=== PATIENT | female | born 1990 | race Caucasian/White ===

== ENCOUNTER 2021-09-30 21:50 | Emergency (ER) | payer SELFPAY ==
[2021-09-30 22:05] VITALS: BP 192/106; PULSE 107; RESP 20; TEMP 37.5; O2SAT 95; BMI 50.2
--- NOTE | 2021-09-30 23:39 | XRR_ITS ---
PROCEDURE INFORMATION: Exam: XR Chest Exam date and time: 09/30/2021 11:45 PM Age: 30 years old Clinical indication: Cough and shortness of breath; Patient HX: Cough with SOB. ; Additional info: Cough and congestion TECHNIQUE: Imaging protocol: Radiologic exam of the chest. Views: 1 view. COMPARISON: CR Chest 2 views* [id number] 07/15/2015 12:26 AM FINDINGS: Lungs: Subtle ill-defined opacity in both lung bases, similar to the findings on 07/15/2015. Pleural spaces: There is no pleural effusion or pneumothorax. Heart/Mediastinum: Cardiomediastinal contours are unremarkable. Bones/joints: Bones are unremarkable. XR/XR chest 1V portable [id number] IMPRESSION: 1. No acute findings. 2. Mild chronic or recurrent nonspecific opacity in the lung bases. Probable atelectasis and scarring.
--- NOTE | 2021-09-30 23:39 | W.ED.GENADLT ---
HPI - General Adult General: Chief complaint: General Medical Stated complaint: cough/SOB/runny nose/congestion Time Seen by Provider: 09/30/21 23:39 History of Present Illness: Patient comes in today for continued respiratory symptoms. Patient was seen at [facility] last week and was diagnosed with upper respiratory infection. Patient was given a azithromycin treatment course and has completed it with minimal to no relief. Patient appears nontoxic. Patient is able to speak in complete sentences. Patient does have occasional coughing spells. Patient was tested for COVID-19 and influenza last week with both negative. Associated symptoms: Reports dyspnea; Deny chest pain Review of Systems Const: Denies: fever(s) Card: Denies: chest pain Resp: Reports: dyspnea and non-productive cough PFSH ED PFSH: Social History (Updated 10/27/20 @ 10:16 by Keila Diaz) Smoking and tobacco status: current every day smoker Second hand smoke exposure: No Alcohol intake: former Physical Exam Const: COMMON NORMALS: alert HENMT: NOSE: Normal nares present THROAT: posterior oropharynx normal Neck/C-Spine: COMMON NORMALS: full ROM Resp: COMMON NORMALS: normal respiratory effort AUSCULTATION: diminished lung sounds Cardio: COMMON NORMALS: regular rate RATE: regular rate : COMMON NORMALS: Yes no CVA tenderness BLADDER/KIDNEY EXAM: Yes no CVA tenderness Back/Pelvis: COMMON NORMALS: no CVA tenderness Extremity: COMMON NORMALS: normal to inspection Neuro: SENSORIUM/ORIENTATION: Yes alert Skin: COMMON NORMALS: no rashes or lesions noted GENERAL SKIN EXAM: no rashes or lesions noted Course Vital Signs: Vital signs: Vital Signs Temperature 99.5 F 09/30/21 22:05 Pulse Rate 102 H 10/01/21 00:23 Respiratory Rate 22 H 10/01/21 00:23 Blood Pressure 170/125 10/01/21 00:23 Pulse Oximetry 97 10/01/21 00:23 MDM - General Adult Medical Decision Making 30-year-old female patient comes in today for continued difficulties from a upper respiratory infection. On exam patient had decreased breath sounds. Skin was warm and dry. Vital signs noted to elevation of blood pressure of 192 systolic, pulse ox of 95% on room air, and a temperature of 99.5. Patient does report that she usually runs a high blood pressure. Patient has not been taking her medication due to loss of insurance. Differential diagnosis includes pneumonia, bronchitis, asthma. Chest x-ray noted no pneumonia. Patient was treated for bronchitis versus asthma. Patient was given a dose of dexamethasone 10 mg, started on Augmentin. Patient was given a albuterol ipratropium breathing treatment. Patient will be sent home with an albuterol inhaler, prescription for Augmentin, a prescription for lisinopril for refills of her blood pressure medication, and a short burst of prednisone. Patient was encouraged to follow-up with primary care when she can for recheck of blood pressure and reevaluation of her lung sounds. Patient stated understanding. Discharge Plan Discharge Patient Disposition: Home Clinical Impression: Bronchitis Condition: Stable Prescriptions: New amoxicillin-pot clavulanate 875-125 mg tablet 1 tab PO BID Qty: 14 0RF prednisone 20 mg tablet 20 mg PO BID 5 Days Qty: 10 0RF Continued lisinopril 20 mg tablet 20 mg PO DAILY Qty: 30 11RF No Action venlafaxine [Effexor XR] 150 mg capsule,extended release 24hr 150 mg PO DAILY 0RF sofosbuvir-velpatasvir [Epclusa] 400-100 mg tablet 1 tab PO DAILY 0RF azithromycin 250 mg tablet See Rx Instructions PO .COMPLEX Qty: 6 0RF Rx Instructions: take 500 mg today (day 1), then 250 mg for 4 days (days 2-5) PO Discharge Orders: Discharge ED (Routine); Ordered 09/30/21 Ordered By: Elbert Abel Discharge Diet: Usual diet Discharge Activity: Increase activity as tolerated Patient Instructions: Acute Bronchitis (ED) Activity Restrictions/Additional Instructions: Drink plenty of water. Use inhaler 2 puffs every 4 hours as needed for cough and shortness of breath. Take Augmentin, amoxicillin with potassium clav., 1 tablet every 12 hours for 7 days. Use prednisone 20 mg 1 tablet twice a day for 5 days. Follow-up with primary care for further instruction and to reevaluate your blood pressure. Stand Alone Forms: Work/School Release Coding Level of Care Code ED [employer] Dist[employer] for [employer]
[2021-10-01] MEDS: amoxicillin-clav 875-125 mg Tablet 1 TAB PO (00:03)
[2021-10-01] MEDS: dexamethasone 10 mg/mL INJ IM (00:03)
[2021-10-01 00:09] VITALS: PULSE 100; RESP 95; O2SAT 20
[2021-10-01] MEDS: ipratropium-albuterol 3 mL Neb INHALATION (00:09)
[2021-10-01 00:13] VITALS: PULSE 100
[2021-10-01 00:23] VITALS: BP 170/125; PULSE 102; RESP 22; O2SAT 97
== END 2021-10-01 00:23 | disposition home or self-care (01) ==
PROVIDERS: Emergency Provider Nurse Practitioner Family
DX: J40 Bronchitis, not specified as acute or chronic (principal); F17.200 Nicotine dependence, unspecified, uncomplicated
CPT/HCPCS: 71045; 94640; 96372; 99284; J1100; J3535

== ENCOUNTER 2022-05-24 13:11 | Emergency (ER) | payer BC, MEDICAID, SELFPAY ==
[2022-05-24 13:16] VITALS: BP 173/136; PULSE 114; RESP 20; TEMP 36.7; O2SAT 98; BMI 44.3
[2022-05-24 14:26] LABS: Basophils # 0.1 10^3/uL (0.0-0.1); Basophils % 0.5 %; Eosinophils # 0.1 10^3/uL (0.0-0.8); Hemoglobin 14.9 g/dL (11.5-15.3); Lymphocytes # 1.5 10^3/uL (0.8-4.8); Lymphocytes % 12.7 %; Mean Corpuscular HGB Conc 33.9 g/dL (30.0-36.0); Mean Corpuscular Hemoglobin 29.6 pg (28.0-34.0); Mean Corpuscular Volume 87.3 fl (81-99); Mean Platelet Volume 9.7 fL (7.4-10.4); Monocytes # 0.7 10^3/uL (0.2-0.9); Monocytes % 6.1 %; Neutrophils # 8.99 10^3/uL (1.8-7.7); Neutrophils % 78.9 %; Nucleated Red Blood Cells % 0 %; Platelet Count 294 10^3/cmm (130-400); Red Blood Count 5.04 10^6/uL (4.1-5.3); White Blood Count 11.4 10^3/uL (4.0-10.0)
--- NOTE | 2022-05-24 14:26 | ED_ITS ---
HPI - General Adult General: Chief complaint: Urogenital-Female Stated complaint: ear pain and period problems Time Seen by Provider: 05/24/22 13:56 Source: patient Mode of arrival: ambulatory Limitations: no limitations History of Present Illness: Patient is a 31-year-old female presents to ED today with two separate complaints. First of all she complains of right ear pain over the past 2 to 3 days. She is not having any drainage from the ear. Denies tinnitus or hearing loss. She has not had any trauma to the ear. She also has a complaint of a heavy menstrual cycle. Patient states she has a history of PCOS so normally does not have regular periods although states over the past few months they have become more and more regular. She states over the past 2 days bleeding has been very heavy and states she is soaking a super to super plus tampon every hour or so. Patient states she is not having any abdominal/pelvic pain or cramping. Onset (ago): day(s) Relieving factors: none Exacerbating factors: none Associated symptoms: Deny chest pain, dyspnea, headache(s), malaise, nausea, rash or vomiting Treatments prior to arrival: none Review of Systems Const: Denies: fever(s), chills, body aches, fatigue or malaise ENMT: Reports: ear or mastoid pain; Denies: throat pain, odynophagia, ear discharge, change in hearing, tinnitus or disequilibrium Card: Denies: chest pain Resp: Denies: dyspnea GI: Denies: abdominal pain, nausea, vomiting or change in bowel habits : Reports: vaginal bleeding; Denies: flank pain, dysuria, hematuria, genital lesions, genital pruritis, vaginal odor, vaginal discharge or pelvic pain Musc: Denies: back pain Skin/Breast: Denies: rash Neuro: Denies: headache(s), numbness in extremities, weakness in extremities, sensory changes or dizziness PFS ED PFSH: Social History Smoking and tobacco status: current every day smoker Second hand smoke exposure: No Alcohol intake: former Physical Exam Const: COMMON NORMALS: no acute distress, patient oriented x3, no limitations and alert GENERAL APPEARANCE: cooperative NUTRITIONAL APPEARANCE: obese morbidly obese ORIENTATION/CONSCIOUSNESS: Yes awake, Yes oriented to person, Yes oriented to place and Yes oriented to time HENMT: COMMON NORMALS: normocephalic, atraumatic and EAC's normal HEAD & SCALP: normal to inspection, normocephalic and atraumatic FACE & SINUS: normal facial exam EXTERNAL AUDITORY CANAL: EAC's normal TYMPANIC MEMBRANE: TM abnormal TM laterality: right Details: bulging, dull and erythematous and left Details: fluid behind TM MOUTH: Normal oral and palatal mucosa present, lip normal and tongue normal THROAT: posterior oropharynx normal Eye: GENERAL EYE: appearance normal, both eyes and all related structures Neck/C-Spine: COMMON NORMALS: full ROM and no lymphadenopathy GENERAL: Yes normal visual inspection Resp: COMMON NORMALS: normal respiratory effort and clear to auscultation bilaterally AUSCULTATION: clear to auscultation bilaterally Cardio: COMMON NORMALS: regular rhythm RATE: tachycardic (mild-105 seated ) RHYTHM: regular rhythm GI: COMMON NORMALS: Normal to inspection, nondistended, normoactive bowel sounds present, Soft to palpation, non-tender, No hepatosplenomegaly present and no masses INSPECTION: Yes normal to inspection AUSCULTATION: Yes normoactive bowel sounds PALPATION: Yes Soft to palpation and Yes No hepatosplenomegaly present : COMMON NORMALS: Yes no CVA tenderness BLADDER/KIDNEY EXAM: Yes no CVA tenderness Back/Pelvis: COMMON NORMALS: no CVA tenderness Extremity: COMMON NORMALS: normal to inspection GENERAL: Yes normal exam except as noted Neuro: LITTLE COMA SCALE: document GCS findings Little coma scale eye opening: Spontaneous Little coma scale verbal response: Orientated Hancock coma scale motor response: Obey commands Little coma scale total score: 15 COMMON NORMALS: patient oriented x3 SENSORIUM/ORIENTATION: Yes alert, Yes oriented to person, Yes oriented to place and Yes oriented to time Skin: COMMON NORMALS: no rashes or lesions noted GENERAL SKIN EXAM: no rashes or lesions noted Course Vital Signs: Vital signs: Vital Signs Temperature 97.9 F 05/24/22 15:07 Pulse Rate 110 H 05/24/22 15:07 Respiratory Rate 20 H 05/24/22 13:16 Blood Pressure 176/108 05/24/22 15:07 Pulse Oximetry 99 05/24/22 15:07 Oxygen Delivery Me thod 05/24/22 15:07 [facility] - General Adult Medical Decision Making Patient here with complaints of menorrhagia and right ear pain. She does have a right otitis media that she will be placed on antibiotics for. Patient's H/H are normal. Offered pelvic exam for further evaluation of bleeding but patient declines. Recommend follow-up with her PCP/MORTGAGE LOAN SPECIALIST if bleeding persists. Strict return ED precautions given. Lab Data 05/24/22 14:14 05/24/22 14:14 Laboratory Results WBC 11.4 10^3/uL (4.0-10.0) H 05/24/22 14:14 RBC 5.04 10^6/uL (4.1-5.3) 05/24/22 14:14 Hgb 14.9 g/dL (11.5-15.3) 05/24/22 14:14 Hct 44.0 % (37.0-47.0) 05/24/22 14:14 MCV 87.3 fl (81-99) 05/24/22 14:14 MCH 29.6 pg (28.0-34.0) 05/24/22 14:14 MCHC 33.9 g/dL (30.0-36.0) 05/24/22 14:14 RDW 13.0 % (12.1-15.1) 05/24/22 14:14 Plt Count 294 10^3/cmm (130-400) 05/24/22 14:14 MPV 9.7 fL (7.4-10.4) 05/24/22 14:14 Neut % (Auto) 78.9 % 05/24/22 14:14 Lymph % (Auto) 12.7 % 05/24/22 14:14 Hamblen % (Auto) 6.1 % 05/24/22 14:14 Eos % (Auto) 1.0 % 05/24/22 14:14 Baso % (Auto) 0.5 % 05/24/22 14:14 Neut # (Auto) 8.99 10^3/uL (1.8-7.7) H 05/24/22 14:14 Lymph # (Auto) 1.5 10^3/uL (0.8-4.8) 05/24/22 14:14 Hamblen # (Auto) 0.7 10^3/uL (0.2-0.9) 05/24/22 14:14 Eos # (Auto) 0.1 10^3/uL (0.0-0.8) 05/24/22 14:14 Baso # (Auto) 0.1 10^3/uL (0.0-0.1) 05/24/22 14:14 Nucleated RBC % (auto) 0 % 05/24/22 14:14 Nucleated RBCs # 0.0 /100WBC 05/24/22 14:14 Sodium 139 mmol/L (136-145) 05/24/22 14:14 Potassium 4.1 mmol/L (3.5-5.1) 05/24/22 14:14 Chloride 104 mmol/L (98-107) 05/24/22 14:14 Carbon Dioxide 25 mmol/L (22-29) 05/24/22 14:14 Anion Gap 14.1 (5-19) 05/24/22 14:14 BUN 8 mg/dL (6-20) 05/24/22 14:14 Creatinine 0.6 mg/dL (0.5-0.9) 05/24/22 14:14 GFR Calculation 118.2 mL/min (90-130) 05/24/22 14:14 Glucose 101 mg/dL (65-115) 05/24/22 14:14 Calculated Osmolality 286 mOsm/kg (285-295) 05/24/22 14:14 Calcium 9.1 mg/dL (8.5-10.5) 05/24/22 14:14 Total Bilirubin 0.2 mg/dL (0.15-1.2) 05/24/22 14:14 AST 11 U/L (0-32) 05/24/22 14:14 ALT 15 U/L (0-33) 05/24/22 14:14 Alkaline Phosphatase 109 U/L (35-105) H 05/24/22 14:14 Total Protein 7.0 g/dL (6.6-8.7) 05/24/22 14:14 Albumin 3.8 g/dL (3.5-5.2) 05/24/22 14:14 Globulin 3.2 g/dL (1.3-4.6) 05/24/22 14:14 HCG, Qual Negative (Negative) 05/24/22 14:14 Discharge Plan Discharge Patient Disposition: Home Clinical Impression: Uterine bleeding, dysfunctional, Acute right otitis media Condition: Stable Prescriptions: Continued amoxicillin-pot clavulanate 875-125 mg tablet 1 tab PO BID Qty: 14 0RF No Action venlafaxine [Effexor XR] 150 mg capsule,extended release 24hr 150 mg PO DAILY sofosbuvir-velpatasvir [Epclusa] 400-100 mg tablet 1 tab PO DAILY azithromycin 250 mg tablet See Rx Instructions PO .COMPLEX Qty: 6 0RF Rx Instructions: take 500 mg today (day 1), then 250 mg for 4 days (days 2-5) PO lisinopril 20 mg tablet 20 mg PO DAILY Qty: 30 11RF Discharge Orders: Discharge ED (Routine); Ordered 05/24/22 Ordered By: Christy Hawkins Patient Instructions: Abnormal (Dysfunctional) Uterine Bleeding (ED), Menorrhagia (ED) Activity Restrictions/Additional Instructions: As we discussed you need to contact your primary care provider/MORTGAGE LOAN SPECIALIST for follow-up of your heavy vaginal bleeding. Please follow-up with somebody in the next 2 to 3 days so they can repeat a hemoglobin if bleeding continues to be heavy. You need to return to the emergency department for worsening vaginal bleeding or heavy vaginal bleeding that does not improve over the next 48 hours. You also need to return for severe lightheadedness, dizziness, passing out episodes, racing heart rate, or any other concerns you may have. 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
[2022-05-24 14:35] LABS: HCG, Serum Qual Negative (Negative)
[2022-05-24 14:40] LABS: Alanine Aminotransferase 15 U/L (0-33); Albumin Level 3.8 g/dL (3.5-5.2); Alkaline Phosphatase 109 U/L (35-105); Anion Gap 14.1 (5-19); Aspartate Amino Transferase 11 U/L (0-32); Blood Urea Nitrogen 8 mg/dL (6-20); Calcium 9.1 mg/dL (8.5-10.5); Carbon Dioxide 25 mmol/L (22-29); Chloride 104 mmol/L (98-107); Globulin 3.2 g/dL (1.3-4.6); Glomerular Filtration Rate 118.2 mL/min (90-130); Glucose 101 mg/dL (65-115); Osmolality Calculated 286 mOsm/kg (285-295); Potassium 4.1 mmol/L (3.5-5.1); Sodium 139 mmol/L (136-145); Total Bilirubin 0.2 mg/dL (0.15-1.2)
[2022-05-24 15:07] VITALS: BP 176/108; PULSE 110; TEMP 36.6; O2SAT 99
--- NOTE | 2022-05-28 09:46 | DCPLANNER ---
manager field sales had message to speak with patient about getting established with a primary care physician. Patient stated that she has a primary care physician, does not need case management help at this time.
== END 2022-05-24 15:47 | disposition home or self-care (01) ==
PROVIDERS: Emergency Provider Physician Assistant
DX: H66.91 Otitis media, unspecified, right ear (principal); N93.8 Other specified abnormal uterine and vaginal bleeding; F17.210 Nicotine dependence, cigarettes, uncomplicated
CPT/HCPCS: 36415; 80053; 84703; 85025; 99283

== ENCOUNTER 2022-07-22 17:57 | Emergency (ER) | payer BC, MEDICAID, SELFPAY ==
[2022-07-22 18:02] VITALS: BP 222/129; PULSE 104; RESP 20; TEMP 36; O2SAT 96; BMI 39.9
[2022-07-22 19:57] VITALS: BP 170/121; PULSE 97; RESP 16; O2SAT 96
--- NOTE | 2022-07-22 20:52 | ED_ITS ---
HPI - General Adult General: Chief complaint: General Medical Stated complaint: m/e Time Seen by Provider: 07/22/22 19:47 Source: patient and family Mode of arrival: ambulatory Limitations: no limitations History of Present Illness: This patient is here because she was directed to come here by various individuals for detoxification. She states she has been using methamphetamine on a fairly regular basis for several months. She also occasionally uses heroin but not to the same frequency as her methamphetamine. She denies any thoughts of harming herself or others. She denies any hallucinations either audio jimmy or visual at this time. She denies other street drugs or alcohol. FOR[facility]LY [facility], [facility] ED PFS: Social History Smoking and tobacco status: current every day smoker Second hand smoke exposure: No Alcohol intake: former Substance/Drug Use: former Course Reevaluation(s): Reevaluation #1: Patient has been sleeping but has had normal stable vital signs. She is easily aroused. We discussed her discharge and she was willing to do so. Her father is still present with her and she will be going home with him this evening. We will provide her prescription for Librium to help with any ongoing methamphetamine induced anxiety. She is under the supervision of drug court and so we will be continuing with her rehabilitation program. Time: 22:53 Vital Signs: Vital signs: Vital Signs Temperature 96.8 F L 07/22/22 18:02 Pulse Rate 97 07/22/22 19:57 Respiratory Rate 16 07/22/22 19:57 Blood Pressure 170/121 07/22/22 19:57 Pulse Oximetry 96 07/22/22 19:57 MDM - General Adult Medical Decision Making 31-year-old female coming to the emergency department by her father. She states that she has been directed to come be evaluated for any possible help with detoxification from methamphetamine use. She has a history of being a user this episode for the last 6 to 7 months. Clinical exam reveals her to be generally well kept, she was cooperative and in no acute distress. No evidence at this time of suicidality or other concerns of self-harm other t sena poor lifestyle choices. Screening laboratories were obtained and she was given IV fluids as well as Ativan to help with any concurrent anxiety. He was observed in the emergency department for period of time and remained stable. She is being discharged with her father who will help provides her and encouraged her in her quest to remain clean. Lab Data I reviewed the patient's lab results. 07/22/22 20:00 07/22/22 20:00 Laboratory Results WBC 9.3 10^3/uL (4.0-10.0) 07/22/22 20:00 RBC 4.69 10^6/uL (4.1-5.3) 07/22/22 20:00 Hgb 13.8 g/dL (11.5-15.3) 07/22/22 20:00 Hct 41.1 % (37.0-47.0) 07/22/22 20:00 MCV 87.6 fl (81-99) 07/22/22 20:00 MCH 29.4 pg (28.0-34.0) 07/22/22 20:00 MCHC 33.6 g/dL (30.0-36.0) 07/22/22 20:00 RDW 12.6 % (12.1-15.1) 07/22/22 20:00 Plt Count 279 10^3/cmm (130-400) 07/22/22 20:00 MPV 10.1 fL (7.4-10.4) 07/22/22 20:00 Neut % (Auto) 67.0 % 07/22/22 20:00 Lymph % (Auto) 23.4 % 07/22/22 20:00 Maverick % (Auto) 7.0 % 07/22/22 20:00 Eos % (Auto) 1.2 % 07/22/22 20:00 Baso % (Auto) 0.6 % 07/22/22 20:00 Neut # (Auto) 6.24 10^3/uL (1.8-7.7) 07/22/22 20:00 Lymph # (Auto) 2.2 10^3/uL (0.8-4.8) 07/22/22 20:00 Maverick # (Auto) 0.7 10^3/uL (0.2-0.9) 07/22/22 20:00 Eos # (Auto) 0.1 10^3/uL (0.0-0.8) 07/22/22 20:00 Baso # (Auto) 0.1 10^3/uL (0.0-0.1) 07/22/22 20:00 Nucleated RBC % (auto) 0 % 07/22/22 20:00 Nucleated RBCs # 0.0 /100WBC 07/22/22 20:00 Sodium 141 mmol/L (136-145) 07/22/22 20:00 Potassium 3.9 mmol/L (3.5-5.1) 07/22/22 20:00 Chloride 104 mmol/L (98-107) 07/22/22 20:00 Carbon Dioxide 25 mmol/L (22-29) 07/22/22 20:00 Anion Gap 15.9 (5-19) 07/22/22 20:00 BUN 10 mg/dL (6-20) 07/22/22 20:00 Creatinine 0.7 mg/dL (0.5-0.9) 07/22/22 20:00 GFR Calculation 98.9 mL/min (90-130) 07/22/22 20:00 Glucose 108 mg/dL (65-115) 07/22/22 20:00 Calculated Osmolality 292 mOsm/kg (285-295) 07/22/22 20:00 Calcium 8.9 mg/dL (8.5-10.5) 07/22/22 20:00 Total Bilirubin 0.3 mg/dL (0.15-1.2) 07/22/22 20:00 AST 18 U/L (0-32) 07/22/22 20:00 ALT 11 U/L (0-33) 07/22/22 20:00 Alkaline Phosphatase 113 U/L (35-105) H 07/22/22 20:00 Total Protein 7.0 g/dL (6.6-8.7) 07/22/22 20:00 Albumin 4.1 g/dL (3.5-5.2) 07/22/22 20:00 Globulin 2.9 g/dL (1.3-4.6) 07/22/22 20:00 Discharge Plan Discharge Patient Disposition: Home Clinical Impression: Methamphetamine use disorder, moderate Condition: Stable Prescriptions: New chlordiazepoxide HCl 25 mg capsule 25 mg PO TID PRN (Reason: anxiety) Qty: 14 0RF No Action venlafaxine [Effexor XR] 150 mg capsule,extended release 24hr 150 mg PO DAILY sofosbuvir-velpatasvir [Epclusa] 400-100 mg tablet 1 tab PO DAILY azithromycin 250 mg tablet See Rx Instructions PO .COMPLEX Qty: 6 0RF Rx Instructions: take 500 mg today (day 1), then 250 mg for 4 days (days 2-5) PO lisinopril 20 mg tablet 20 mg PO DAILY Qty: 30 11RF amoxicillin-pot clavulanate 875-125 mg tablet 1 tab PO BID Qty: 14 0RF Discharge Orders: Discharge ED (Routine); Ordered 07/22/22 Ordered By: Alexis Valderrama Discharge Diet: Usual diet Discharge Activity: Increase activity as tolerated Patient Instructions: Opioid Safety, Pain Management Activity Restrictions/Additional Instructions: As we reviewed during your emergency department stay. It is important that you continue your efforts to stop using methamphetamine as it continued use will deleterious to your current lifestyle. We have provided some medication to help with any resulting anxiety from discontinuation of that substance over the next several days. We also encouraged her to continue with your rehabilitation classes as they will be helpful in boosting her desire to return to return to her former lifestyle. If it anytime you have any new concerns, worsening symptoms or other new or progressive symptoms return to this or the nearest emergency department for reevaluation. 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
[2022-07-22 20:59] LABS: Basophils # 0.1 10^3/uL (0.0-0.1); Basophils % 0.6 %; Eosinophils # 0.1 10^3/uL (0.0-0.8); Eosinophils % 1.2 %; Hematocrit 41.1 % (37.0-47.0); Hemoglobin 13.8 g/dL (11.5-15.3); Lymphocytes # 2.2 10^3/uL (0.8-4.8); Lymphocytes % 23.4 %; Mean Corpuscular HGB Conc 33.6 g/dL (30.0-36.0); Mean Corpuscular Hemoglobin 29.4 pg (28.0-34.0); Mean Corpuscular Volume 87.6 fl (81-99); Mean Platelet Volume 10.1 fL (7.4-10.4); Monocytes # 0.7 10^3/uL (0.2-0.9); Neutrophils # 6.24 10^3/uL (1.8-7.7); Nucleated Red Blood Cells % 0 %; Platelet Count 279 10^3/cmm (130-400); Red Blood Count 4.69 10^6/uL (4.1-5.3); Red Cell Distribution Width 12.6 % (12.1-15.1); White Blood Count 9.3 10^3/uL (4.0-10.0)
[2022-07-22] MEDS: LORazepam 2 mg/mL INJ 1 mL 1 MG IVP (21:10)
[2022-07-22] MEDS: sodium chloride 0.9% 1,000 ML 999 ML IV (21:10)
[2022-07-22 21:15] LABS: Alanine Aminotransferase 11 U/L (0-33); Albumin Level 4.1 g/dL (3.5-5.2); Alkaline Phosphatase 113 U/L (35-105); Anion Gap 15.9 (5-19); Aspartate Amino Transferase 18 U/L (0-32); Blood Urea Nitrogen 10 mg/dL (6-20); Calcium 8.9 mg/dL (8.5-10.5); Carbon Dioxide 25 mmol/L (22-29); Chloride 104 mmol/L (98-107); Globulin 2.9 g/dL (1.3-4.6); Glomerular Filtration Rate 98.9 mL/min (90-130); Glucose 108 mg/dL (65-115); Osmolality Calculated 292 mOsm/kg (285-295); Potassium 3.9 mmol/L (3.5-5.1); Sodium 141 mmol/L (136-145); Total Bilirubin 0.3 mg/dL (0.15-1.2)
[2022-07-22 23:05] VITALS: BP 151/89; PULSE 88; RESP 16; O2SAT 91
[2022-07-22 23:15] VITALS: BP 151/89; PULSE 88; RESP 16; TEMP 36; O2SAT 91
--- NOTE | 2022-07-23 13:46 | DCPLANNER ---
Patient was called due to no primary care physician - patient states that she sees Stefani Koehler at Pending sale to [facility]
== END 2022-07-22 23:16 | disposition home or self-care (01) ==
PROVIDERS: Emergency Provider Emergency Medicine; PCP Physician Assistant
DX: F15.90 Other stimulant use, unspecified, uncomplicated (principal); F17.200 Nicotine dependence, unspecified, uncomplicated
CPT/HCPCS: 80053; 85025; 96361; 96374; 99284; J2060; J7030

== ENCOUNTER 2022-08-15 18:58 | Emergency (ER) | payer BC, MEDICAID, SELFPAY ==
[2022-08-15 19:03] VITALS: BP 153/110; PULSE 95; RESP 16; TEMP 36.7; O2SAT 97; BMI 40.8
[2022-08-15 19:48] VITALS: BP 173/114; PULSE 96; RESP 16; O2SAT 99
--- NOTE | 2022-08-15 19:56 | CTR_ITS ---
PROCEDURE INFORMATION: Exam: CT Head Without Contrast Exam date and time: 08/15/2022 8:45 PM Age: 31 years old Clinical indication: Numbness / parasthesia; Left; Additional info: Paresthesia, left side TECHNIQUE: Imaging protocol: Computed tomography of the head without contrast. Radiation optimization: All CT scans at this facility use at least one of these dose optimization techniques: automated exposure control; mA and/or kV adjustment per patient size (includes targeted exams where dose is matched to clinical indication); or iterative reconstruction. REPORTING DATA: Count of CT and Cardiac NM exams in prior 12 months: This patient has received 0 known CTs and 0 known cardiac nuclear medicine studies in the 12 months prior to the current study. COMPARISON: No relevant prior studies available. RADIATION DOSE METRICS: Total DLP (mGy-cm): 1172.18 FINDINGS: Brain: Normal. No hemorrhage. Unremarkable white matter. No mass effect. Cerebral ventricles: No ventriculomegaly. Paranasal sinuses: Visualized sinuses are unremarkable. No fluid levels. Mastoid air cells: Visualized mastoid air cells are well aerated. Bones/joints: Unremarkable. No acute fracture. Soft tissues: Unremarkable. CT/CT head wo con* [id number] IMPRESSION: No acute intracranial abnormality.
--- NOTE | 2022-08-15 19:57 | ECG_ITS ---
[facility] Test Date: 2022-08-15 Pat Name: Lizzy Rubin Department: Room: Gender: Female Cinder Block Mason: : 1990 Requested By: Mir Witt Order Number: [id number] Leigh Ann MD: Prabhu Stein M.D. Measurements Intervals [place]ana Rate: 86 P: 45 NH: 161 QRS: 19 QRSD: 101 T: 61 QT: 382 QTc: 458 Interpretive Statements SINUS RHYTHM No previous ECG available for comparison Electronically Signed On 08-15-2022 20:55:35 CDT by Prabhu Stein M.D. [email or web address]
[2022-08-15 20:09] LABS: Basophils # 0.1 10^3/uL (0.0-0.1); Basophils % 1.1 %; Eosinophils # 0.4 10^3/uL (0.0-0.8); Eosinophils % 3.4 %; Hematocrit 40.8 % (37.0-47.0); Hemoglobin 13.6 g/dL (11.5-15.3); Lymphocytes % 28.3 %; Mean Corpuscular HGB Conc 33.3 g/dL (30.0-36.0); Mean Corpuscular Hemoglobin 29.8 pg (28.0-34.0); Mean Corpuscular Volume 89.5 fl (81-99); Mean Platelet Volume 9.6 fL (7.4-10.4); Monocytes # 0.8 10^3/uL (0.2-0.9); Monocytes % 7.2 %; Neutrophils % 57.7 %; Nucleated Red Blood Cells % 0 %; Platelet Count 320 10^3/cmm (130-400); Red Blood Count 4.56 10^6/uL (4.1-5.3); Red Cell Distribution Width 12.8 % (12.1-15.1); White Blood Count 10.8 10^3/uL (4.0-10.0)
[2022-08-15] MEDS: amlodipine 10 mg Tablet PO (20:19)
[2022-08-15] MEDS: nicotine 21 mg Patch 1 PATCH TRANSDERMA (20:35)
[2022-08-15] MEDS: valproic acid inj 500 MG in sodium chloride 0.9% 50 ML 55 MG IV (20:35)
[2022-08-15 20:39] VITALS: BP 152/92; PULSE 85; RESP 16; O2SAT 97
[2022-08-15 20:40] LABS: Alanine Aminotransferase 14 U/L (0-33); Albumin Level 3.9 g/dL (3.5-5.2); Alkaline Phosphatase 117 U/L (35-105); Anion Gap 16.2 (5-19); Aspartate Amino Transferase 11 U/L (0-32); Blood Urea Nitrogen 13 mg/dL (6-20); Calcium 9.3 mg/dL (8.5-10.5); Carbon Dioxide 25 mmol/L (22-29); Chloride 102 mmol/L (98-107); Globulin 2.9 g/dL (1.3-4.6); Glomerular Filtration Rate 118.2 mL/min (90-130); Glucose 95 mg/dL (65-115); Magnesium 1.9 mg/dL (1.7-2.3); Osmolality Calculated 288 mOsm/kg (285-295); Phosphorus 4.5 mg/dL (2.5-4.5); Potassium 4.2 mmol/L (3.5-5.1); Sodium 139 mmol/L (136-145); Total Bilirubin 0.2 mg/dL (0.15-1.2); Total Protein 6.8 g/dL (6.6-8.7)
[2022-08-15 21:05] VITALS: PULSE 86; RESP 16; O2SAT 95
[2022-08-15 21:20] LABS: Add Urine Microscopic? YES; Bilirubin Urine Neg (Negative); Blood Urine Neg (Negative); Glucose Urine UA Norm (Normal); Ketones Urine Negative (Negative); Leukocyte Esterase Urine 2+ (Negative); Nitrate Urine Negative (Negative); Protein Urine Neg (Negative); Specific Gravity, Urine 1.015 (1.005-1.030); Urine Appearance Hazy (CLEAR); Urine Color Yellow (Yellow); Urobilinogen Urine Norm (Negative); pH Urine 7 (5-7)
[2022-08-15 21:22] LABS: Add Urine Culture? Yes; Bacteria Urine 1+ /hpf; Squamous Epithelial Cell Urine 0-4 /hpf (0-5); WBC Urine 25-40 /hpf (0-5)
--- NOTE | 2022-08-15 21:55 | W.ED.EXTPRO ---
HPI - Extremity Problem General: Chief complaint: Extremity Problem,Nontraumatic Stated complaint: bilateral arm tingling Time Seen by Provider: 08/15/22 19:31 Source: patient History of Present Illness: 31-year-old female with a 2 hours so history of paresthesia to the left upper and lower extremities. She is not weak. No speech, language, vision, or dizziness problems. Her blood pressure has been high of late, and medications were switched. Blood pressure was high in the rehabilitation center, so ambulance was called for transport. She continues to complain of the paresthesia. She denies headache or neck pain. MD Complaint: other Onset (ago): hour(s) Location: left, upper extremity and lower extremity Quality: other Radiation: none Relieving factors: nothing Exacerbating factors: nothing Associated symptoms: Deny arthralgias, chest pain, fever(s), myalgias, rash or short of breath Review of Systems Const: Denies: fever(s) Card: Denies: chest pain Resp: Denies: dyspnea or productive cough GI: Denies: abdominal pain, nausea or vomiting Skin/Breast: Denies: rash PFSH ED PFSH: Social History Smoking and tobacco status: current every day smoker Second hand smoke exposure: No Alcohol intake: former Substance/Drug Use: former Female Reproductive History: Date of last menstrual period: 07/27/22 Physical Exam Const: COMMON NORMALS: no acute distress and alert GENERAL APPEARANCE: cooperative; not ill appearing and not frail appearing HENMT: COMMON NORMALS: normocephalic, atraumatic and Normal external nose present HEAD & SCALP: normocephalic and atraumatic FACE & SINUS: normal facial exam and face symmetric NOSE: Normal external nose present Eye: COMMON NORMALS: Equal, round and reactive pupils present and EOMs intact bilaterally PUPIL: Yes Equal, round and reactive pupils present Neck/C-Spine: GENERAL: Yes trachea midline Chest: CHEST: Yes Symmetrical chest wall rise Resp: COMMON NORMALS: normal respiratory effort, No retractions, No use of accessory muscles and clear to auscultation bilaterally AUSCULTATION: clear to auscultation bilaterally Cardio: COMMON NORMALS: regular rate and regular rhythm RATE: regular rate RHYTHM: regular rhythm GI: COMMON NORMALS: Normal to inspection, nondistended, normoactive bowel sounds present Extremity: COMMON NORMALS: no pedal edema Neuro: LITTLE COMA SCALE: document GCS findings Little coma scale eye opening: Spontaneous Little coma scale verbal response: [place]ated [place] coma scale motor response: Obey commands Little coma scale total score: 15 SENSORIUM/ORIENTATION: Yes alert COORDINATION/BALANCE: woipuo-ut-rief test normal and kekv-av-awlp test normal SPEECH: speech normal SENSORY EXAM: Yes extremities (Reduced left upper extremity and left lower extremity) MOTOR EXAM: Pronator motor function not present and Normal motor muscle tone present throughout COORDINATION: owonae-eo-kfur test normal and gjuk-dj-ilmd test normal Psych: COMMON NORMALS: speech normal SPEECH: Yes normal speech Skin: COMMON NORMALS: no rashes or lesions noted GENERAL SKIN EXAM: no rashes or lesions noted Course Vital Signs: Vital signs: Vital Signs Temperature 98.1 F 08/15/22 19:03 Pulse Rate 93 08/15/22 22:19 Respiratory Rate 16 08/15/22 22:19 Blood Pressure 116/64 08/15/22 22:19 Pulse Oximetry 98 08/15/22 22:19 Oxygen Delivery Me thod Room Air 08/15/22 22:19 MDM - Extremity (Nontraumatic) Medical Decision Making Symptoms are resolved. Blood pressure currently 116/64 following administration of medication. Laboratory is benign. Head CT is negative. She does have a urinary tract infection. We will treat this as an outpt. Lab Data 08/15/22 17:51 08/15/22 17:[address] 08/15/22 19:56 IMPRESSION: No acute intracranial abnormality. Laboratory Results WBC 10.8 10^3/uL (4.0-10.0) H 08/15/22 17:51 RBC 4.56 10^6/uL (4.1-5.3) 08/15/22 17:51 Hgb 13.6 g/dL (11.5-15.3) 08/15/22 17:51 Hct 40.8 % (37.0-47.0) 08/15/22 17:51 MCV 89.5 fl (81-99) 08/15/22 17:51 MCH 29.8 pg (28.0-34.0) 08/15/22 17:51 MCHC 33.3 g/dL (30.0-36.0) 08/15/22 17:51 RDW 12.8 % (12.1-15.1) 08/15/22 17:51 Plt Count 320 10^3/cmm (130-400) 08/15/22 17:51 MPV 9.6 fL (7.4-10.4) 08/15/22 17:51 Neut % (Auto) 57.7 % 08/15/22 17:51 Lymph % (Auto) 28.3 % 08/15/22 17:51 [place] % (Auto) 7.2 % 08/15/22 17:51 Eos % (Auto) 3.4 % 08/15/22 17:51 Baso % (Auto) 1.1 % 08/15/22 17:51 Neut # (Auto) 6.20 10^3/uL (1.8-7.7) 08/15/22 17:51 Lymph # (Auto) 3.0 10^3/uL (0.8-4.8) 08/15/22 17:51 [place] # (Auto) 0.8 10^3/uL (0.2-0.9) 08/15/22 17:51 Eos # (Auto) 0.4 10^3/uL (0.0-0.8) 08/15/22 17:51 Baso # (Auto) 0.1 10^3/uL (0.0-0.1) 08/15/22 17:51 Nucleated RBC % (auto) 0 % 08/15/22 17:51 Nucleated RBCs # 0.0 /100WBC 08/15/22 17:51 Sodium 139 mmol/L (136-145) 08/15/22 17:51 Potassium 4.2 mmol/L (3.5-5.1) 08/15/22 17:51 Chloride 102 mmol/L (98-107) 08/15/22 17:51 Carbon Dioxide 25 mmol/L (22-29) 08/15/22 17:51 Anion Gap 16.2 (5-19) 08/15/22 17:51 BUN 13 mg/dL (6-20) 08/15/22 17:51 Creatinine 0.6 mg/dL (0.5-0.9) 08/15/22 17:51 GFR Calculation 118.2 mL/min (90-130) 08/15/22 17:51 Glucose 95 mg/dL (65-115) 08/15/22 17:51 Calculated Osmolality 288 mOsm/kg (285-295) 08/15/22 17:51 Calcium 9.3 mg/dL (8.5-10.5) 08/15/22 17:51 Phosphorus 4.5 mg/dL (2.5-4.5) 08/15/22 17:51 Magnesium 1.9 mg/dL (1.7-2.3) 08/15/22 17:51 Total Bilirubin 0.2 mg/dL (0.15-1.2) 08/15/22 17:51 AST 11 U/L (0-32) 08/15/22 17:51 ALT 14 U/L (0-33) 08/15/22 17:51 Alkaline Phosphatase 117 U/L (35-105) H 08/15/22 17:51 Total Protein 6.8 g/dL (6.6-8.7) 08/15/22 17:51 Albumin 3.9 g/dL (3.5-5.2) 08/15/22 17:51 Globulin 2.9 g/dL (1.3-4.6) 08/15/22 17:51 Vitamin B12 350 pg/mL (232-1245) 08/15/22 17:51 Folate 7.6 ng/mL (4.8-37.3) 08/15/22 17:51 Urine Color Yellow (Yellow) 08/15/22 21:08 Urine Appearance Hazy (CLEAR) A 08/15/22 21:08 Urine pH 7 (5-7) 08/15/22 21:08 Ur Specific [place] 1.015 (1.005-1.030) 08/15/22 21:08 Urine Protein Neg (Negative) 08/15/22 21:08 Urine Glucose (UA) Norm (Normal) 08/15/22 21:08 Urine Ketones Negative (Negative) 08/15/22 21: Urine Blood Neg (Negative) 08/15/22 21:08 Urine Nitrate Negative (Negative) 08/15/22 21:08 Urine Bilirubin Neg (Negative) 08/15/22 21:08 Urine Urobilinogen Norm mg/dL (Negative) 08/15/22 21:08 Ur Leukocyte Esterase 2+ (Negative) H 08/15/22 21:08 Urine RBC 5-10 /hpf (0-2) H 08/15/22 21:08 Urine WBC 25-40 /hpf (0-5) H 08/15/22 21:08 Ur Squamous Epith Cells 0-4 /hpf (0-5) H 08/15/22 21:08 Amorphous Sediment Not Reportable 08/15/22 21:08 Urine Bacteria 1+ /hpf (NONE) H 08/15/22 21:08 Discharge Plan Discharge Patient Disposition: Home Clinical Impression: Hypertensive urgency, Paresthesia, UTI (urinary tract infection) Condition: Stable Prescriptions: New amlodipine 10 mg tablet 10 mg PO DAILY Qty: 30 0RF Macrobid 100 mg capsule 100 mg PO BID 7 Days Qty: 14 0RF Rx Instructions: must administer with a meal/food No Action venlafaxine [Effexor XR] 150 mg capsule,extended release 24hr 150 mg PO DAILY sofosbuvir-velpatasvir [Epclusa] 400-100 mg tablet 1 tab PO DAILY azithromycin 250 mg tablet See Rx Instructions PO .COMPLEX Qty: 6 0RF Rx Instructions: take 500 mg today (day 1), then 250 mg for 4 days (days 2-5) PO lisinopril 20 mg tablet 20 mg PO DAILY Qty: 30 11RF amoxicillin-pot clavulanate 875-125 mg tablet 1 tab PO BID Qty: 14 0RF chlordiazepoxide HCl 25 mg capsule 25 mg PO TID PRN (Reason: anxiety) Qty: 14 0RF Discharge Orders: Discharge ED (Routine); Ordered 08/15/22 Ordered By: Mir Pastor Referrals: Breann Koehler PA-C [Primary Care Provider] - 1-3 days Patient Instructions: Urinary Tract Infection in Women (ED), Paresthesia (ED), Hypertension (ED) Activity Restrictions/Additional Instructions: Continue to check blood pressures twice daily. If blood pressure remains greater than 150/90, take the medication prescribed today. Return for weakness, problems with language or speech, vision, worsening numbness or tingling, or any other concerning symptoms despite treatment. see your doctor this week. Antibiotics as directed for the urinary tract infection. Coding Level of Care Code ED Utility Gelatin Maker for Bryce Bo
[2022-08-15 22:19] VITALS: BP 116/64; PULSE 93; RESP 16; O2SAT 98
[2022-08-16 00:55] LABS: Vitamin B12 350 pg/mL (232-1245)
[2022-08-16 00:56] LABS: Folate Level 7.6 ng/mL (4.8-37.3)
== END 2022-08-15 22:21 | disposition home or self-care (01) ==
PROVIDERS: Emergency Provider Emergency Medicine; PCP Physician Assistant
DX: R20.2 Paresthesia of skin (principal); N39.0 Urinary tract infection, site not specified; I16.0 Hypertensive urgency; F17.210 Nicotine dependence, cigarettes, uncomplicated
CPT/HCPCS: 70450; 80053; 81001; 82607; 82746; 83735; 84100; 85025; 87086; 93005; 96365; 99285; J3490

== ENCOUNTER 2023-03-27 10:10 | Emergency (ER) | payer BC, MEDICAID, SELFPAY ==
[2023-03-27 10:21] VITALS: BP 192/153; PULSE 70; RESP 18; TEMP 36.3; O2SAT 97; BMI 47.1
--- NOTE | 2023-03-27 10:36 | W.ED.NAVMDI ---
HPI - Nausea/Vomiting/Diarrhea General: Chief complaint: Nausea/Vomiting/Diarrhea Stated complaint: N/V Time Seen by Provider: 03/27/23 10:12 History of Present Illness: Patient presents to the ER with complaints of nausea vomiting since about 6 AM. Patient states she went out last night and drinks 6 or 7 little 99 proof shooters and done just fine last night when she woke up this morning she started vomiting and could not keep anything down. Patient denies any fever chills coughs colds abdominal pain etc. Review of Systems General: Reports: 10 or more systems reviewed and unremarkable except in HPI and below PFSH ED PFSH: Social History Smoking and tobacco/nicotine status: current every day tobacco/nicotine user Second hand smoke exposure: No Alcohol intake: former Substance/Drug Use: former Physical Exam Const: COMMON NORMALS: no acute distress, average body habitus, patient oriented x3, no limitations, healthy appearing, alert and well nourished HENMT: COMMON NORMALS: normocephalic, atraumatic, hearing grossly normal bilaterally, external ears normal, Normal external nose present, moist oral mucous membranes and oropharynx normal HEAD & SCALP: normocephalic and atraumatic NOSE: Normal external nose present EXTERNAL EAR: Yes external ears normal Neck/C-Spine: COMMON NORMALS: full ROM, no lymphadenopathy, supple, no meningeal signs, no JVD and Thyroid normal THYROID: Thyroid normal Chest: COMMONS NORMALS: normal inspection of the chest and normal palpation of entire chest wall Resp: COMMON NORMALS: normal respiratory effort, No retractions, No use of accessory muscles and clear to auscultation bilaterally AUSCULTATION: clear to auscultation bilaterally Cardio: COMMON NORMALS: no JVD, regular rate, regular rhythm, S1 normal heart sound present, S2 normal heart sound present, No gallops present (Cardio), No clicks present (Cardio), No murmurs present (Cardio) and No rub (Cardio) RATE: regular rate RHYTHM: regular rhythm HEART SOUNDS: S1 normal heart sound present and S2 normal heart sound present GI: COMMON NORMALS: Normal to inspection, nondistended, normoactive bowel sounds present, Soft to palpation, non-tender, No hepatosplenomegaly present and no masses PALPATION: Yes Soft to palpation and Yes No hepatosplenomegaly present Neuro: COMMON NORMALS: patient oriented x3 SENSORIUM/ORIENTATION: Yes alert MENINGEAL SIGNS: Yes no meningeal signs Course Vital Signs: Vital signs: Vital Signs Temperature 97.4 F L 03/27/23 10:21 Pulse Rate 70 03/27/23 10:21 Respiratory Rate 18 03/27/23 10:21 Blood Pressure 154/105 03/27/23 12:35 Pulse Oximetry 97 03/27/23 10:21 Oxygen Delivery Me thod Room Air 03/27/23 10:21 MDM - Nausea/Vomiting/Diarrhea Medical Decision Making Patient presented to the ER after having a night of drinking last night and having nausea and vomiting this morning. Patient was given Zofran which she tolerated well. Patient was given clonidine 0.2 mg for her elevated blood pressure because she was unable to take her blood pressure pill this morning. Her blood pressure improved. Patient be discharged on Zofran. Differential Diagnosis Likely gastroenteritis; Unlikely traveler's diarrhea, food poisoning, clostridium difficile infection, drug-induced nausea and vomiting or dehydration Medical Records I reviewed the patient's medical records. Lab Data I reviewed the patient's lab results. No radiology studies performed this visit Discharge Plan Discharge Patient Disposition: Home Clinical Impression: Acute nausea with nonbilious vomiting, Hypertension Condition: Stable Prescriptions: No Action lisinopril 20 mg tablet 20 mg PO DAILY Qty: 30 11RF Discharge Orders: Discharge ED (Routine); Ordered 03/27/23 Ordered By: Jimi Joe Referrals: Breann Koehler PA-C [Primary Care Provider] - 1 week Patient Instructions: Acute Nausea and Vomiting (DC), Hypertension Activity Restrictions/Additional Instructions: Please take your nausea medicine as needed as directed. Please take your blood pressure medicine when you get home today. Please follow-up with your family practice doctor for further evaluation and treatment as needed. Coding Level of Care Code ED Concrete Block Layer for Bryce Bo
[2023-03-27] MEDS: ondansetron 4 MG Tablet PO (10:47)
[2023-03-27 12:35] VITALS: BP 154/105
[2023-03-27] MEDS: cloNIDine 0.1 mg Tablet 0.2 MG PO (12:35)
[2023-03-27 14:02] VITALS: BP 126/80; PULSE 80; RESP 16; O2SAT 96
== END 2023-03-27 14:03 | disposition home or self-care (01) ==
PROVIDERS: Emergency Provider Emergency Medicine; PCP Physician Assistant
DX: R11.2 Nausea with vomiting, unspecified (principal); I10 Essential (primary) hypertension; Z72.0 Tobacco use
CPT/HCPCS: 99283; Q0162

== ENCOUNTER 2023-09-14 15:49 | Emergency (ER) | payer BC, MEDICAID, SELFPAY ==
[2023-09-14 16:15] VITALS: BP 178/124; PULSE 78; RESP 16; TEMP 36.8; O2SAT 96
--- NOTE | 2023-09-14 16:29 | ED_ITS ---
HPI - Animal Bite General: Chief Complaint: Animal Bite Stated Complaint: dog bite, back left thigh Time Seen by Provider: 09/14/23 16:16 Source: patient Mode of arrival: ambulatory Limitations: no limitations History of Present Illness: 32-year-old female states she is bit by a dog 2 days ago she seen at [facility] states and clean the wound she has been on Augmentin states she had some numbness on that leg had some slight pain denies any drainage she has had some slight swelling at the site. She states that they did contact animal control the dog is up-to-date on its rabies vaccination Associated symptoms: Deny chills, fever(s) or headache(s) Review of Systems Const: Denies: fever(s), chills, body aches or change in appetite ENMT: Denies: throat pain or dental pain Card: Denies: chest pain Resp: Denies: dyspnea GI: Denies: abdominal pain, nausea, vomiting or diarrhea Musc: Denies: neck pain or back pain Skin/Breast: Denies: rash Neuro: Denies: headache(s) PFS ED PFSH: Social History Smoking and tobacco/nicotine status: current every day tobacco/nicotine user Second hand smoke exposure: No Alcohol intake: former Substance/Drug Use: former Physical Exam Const: COMMON NORMALS: no acute distress, patient oriented x3 and healthy appearing HENMT: COMMON NORMALS: normocephalic and atraumatic HEAD & SCALP: normocephalic and atraumatic Neck/C-Spine: COMMON NORMALS: full ROM and supple Chest: COMMONS NORMALS: normal inspection of the chest Resp: COMMON NORMALS: normal respiratory effort Extremity: NARRATIVE EXTREMITY EXAM: Dog bite noted to left inner thigh puncture wounds noted some bruising no redness no drainage Neuro: COMMON NORMALS: patient oriented x3, moves all extremities and no focal motor deficits Psych: COMMON NORMALS: mental status grossly normal, Normal thought process present and cooperative THOUGHT PROCESS: Normal thought process present Skin: COMMON NORMALS: no rashes or lesions noted and no wounds GENERAL SKIN EXAM: no rashes or lesions noted Course Vital Signs: Vital signs: Vital Signs Temperature 98.3 F 09/14/23 16:15 Pulse Rate 78 09/14/23 16:15 Respiratory Rate 16 09/14/23 16:15 Blood Pressure 178/124 09/14/23 16:15 Pulse Oximetry 96 09/14/23 16:15 MDM - Animal Bite Medical Decision Making Patient presents here with a dog bite she is already on antibiotics has no signs of infection has some slight paresthesias likely due to the bite exam here is benign she stable for discharge follow-up PCP return if worsening. Medical Records I reviewed the patient's medical records. No radiology studies performed this visit Discharge Plan Discharge Patient Disposition: Home Clinical Impression: Dog bite Condition: Stable Prescriptions: No Action lisinopril 20 mg tablet 20 mg PO DAILY Qty: 30 11RF ondansetron HCl 4 mg tablet 4 mg PO Q8H PRN (Reason: nausea and vomiting) Qty: 14 0RF Discharge Orders: Discharge ED (Routine); Ordered 09/14/23 Ordered By: Kt Wiggins Referrals: Breann Koehler PA-C [Primary Care Provider] - 4-7 days Discharge Diet: Advance as tolerated Discharge Activity: Resume usual activity Patient Instructions: Animal Bite (ED) Coding Level of Care Code ED Enterprise Sales Person for Bryce Bo
--- NOTE | 2023-09-14 16:38 | PC.NURSE ---
Wounds covered with non-stick dressing, secured with silk tape
== END 2023-09-14 16:42 | disposition home or self-care (01) ==
PROVIDERS: Emergency Provider Emergency Medicine; PCP Physician Assistant
DX: S71.152A Open bite, left thigh, initial encounter (principal); W54.0XXA Bitten by dog, initial encounter; Z72.0 Tobacco use
CPT/HCPCS: 99282

== ENCOUNTER 2024-04-24 17:59 | Emergency (ER) | payer SELFPAY ==
[2024-04-24 18:00] VITALS: PULSE 92; RESP 16; TEMP 36.8; O2SAT 97; BMI 46.6
--- NOTE | 2024-04-24 18:04 | ED_ITS ---
HPI - Allergic Reaction General: Chief complaint: Allergic Reaction Stated complaint: Allergic reaction Time Seen by Provider: 04/24/24 18:01 Source: patient and EMS Mode of arrival: EMS Limitations: no limitations History of Present Illness: HPI narrative: 33-year-old female who states that she s tarted having allergic reaction. She states that she started having some rash her face and chest she noticed around 2 states it got much worse at 4 times of difficulty swallowing went to urgent care patient received epinephrine Solu-Medrol Benadryl there and then called EMS she states she feels much improved states she feels like her throat swelling is went down she is having no difficulty swallowing or speaking she denies any allergic reactions in the past. Associated symptoms: Deny abdominal pain, nausea or vomiting Related Data Previous Rx's Medication Instructions Recorded lisinopril 20 mg tablet 20 mg PO DAILY #30 tabs 09/30/21 amoxicillin 875 mg tablet 875 mg PO BID 7 days #14 tabs 03/23/24 fluticasone propionate 50 2 spray intranasal DAILY #16 grams 03/23/24 mcg/actuation nasal spray,suspension (Flonase Allergy Relief) epinephrine 0.3 mg/0.3 mL 0.3 mg (0.3 mL) IM Q15M PRN 04/24/24 injection, auto-injector (EpiPen anaphylaxis #2 ea 2-Nate) Allergies Allergy/AdvReac Type Severity Reaction Status Date / Time lamotrigine [From Lamictal] Allergy HIVES Verified 03/23/24 12:48 Review of Systems Const: Denies: fever(s), chills, body aches or change in appetite ENMT: Denies: throat pain or dental pain Card: Denies: chest pain Resp: Denies: dyspnea GI: Denies: abdominal pain, nausea, vomiting or diarrhea Musc: Denies: neck pain or back pain Skin/Breast: Reports: rash Neuro: Denies: headache(s) PFSH ED PFSH: Social History Smoking and tobacco/nicotine status: current every day tobacco/nicotine user (smokes and vapes ) Second hand smoke exposure: No Alcohol intake: former Substance/Drug Use: former Physical Exam Const: COMMON NORMALS: no acute distress, patient oriented x3 and healthy appearing HENMT: COMMON NORMALS: normocephalic and atraumatic HEAD & SCALP: normocephalic and atraumatic MOUTH: Normal oral and palatal mucosa present THROAT: posterior oropharynx normal Eye: COMMON NORMALS: Equal, round and reactive pupils present and EOMs intact bilaterally PUPIL: Yes Equal, round and reactive pupils present Neck/C-Spine: COMMON NORMALS: full ROM Chest: COMMONS NORMALS: normal inspection of the chest Resp: COMMON NORMALS: normal respiratory effort, No retractions, No use of accessory muscles and clear to auscultation bilaterally AUSCULTATION: clear to auscultation bilaterally Cardio: COMMON NORMALS: regular rate, regular rhythm and No murmurs present (Cardio) RATE: regular rate RHYTHM: regular rhythm Extremity: COMMON NORMALS: normal to inspection and full ROM Neuro: COMMON NORMALS: patient oriented x3, moves all extremities and no focal motor deficits Psych: COMMON NORMALS: mental status grossly normal, Normal thought process present and cooperative THOUGHT PROCESS: Normal thought process present Course Vital Signs: Vital signs: Vital Signs Temperature 98.2 F 04/24/24 18:00 Pulse Rate 84 04/24/24 19:39 Respiratory Rate 19 H 04/24/24 19:39 Blood Pressure 176/99 04/24/24 19:39 Pulse Oximetry 100 04/24/24 19:39 Oxygen Delivery Me thod Room Air 04/24/24 18:00 MDM - Allergic Reaction Medical Decision Making Patient presents here after an allergic reaction she has been well-appearing here she had no throat swelling here she stable for discharge she is take Benadryl at home we will prescribe her an EpiPen she is follow-up with PCP return if worsening. Medical Records I reviewed the patient's medical records. Lab Data I reviewed the patient's lab results. Radiology Impressions Chest X-Ray 04/24/24 18:04 IMPRESSION: No acute findings. No radiology studies performed this visit Discharge Plan Discharge Patient Disposition: Home Clinical Impression: Allergic reaction Condition: Stable Prescriptions: New epinephrine [EpiPen 2-Nate] 0.3 mg/0.3 mL auto-injector 0.3 mg IM Q15M PRN (Reason: anaphylaxis) Qty: 2 0RF Rx Instructions: for 3 doses No Action amoxicillin 875 mg tablet 875 mg PO BID 7 Days Qty: 14 0RF fluticasone propionate [Flonase Allergy Relief] 50 mcg/actuation spray,suspension 2 spray intranasal DAILY Qty: 16 0RF Rx Instructions: administer into each nostril lisinopril 20 mg tablet 20 mg PO DAILY Qty: 30 11RF Discharge Orders: Discharge ED (Routine); Ordered 04/24/24 Ordered By: Kt Wiggins Referrals: Breann Koehler PA-C [Primary Care Provider] - 4-7 days Discharge Diet: Advance as tolerated Discharge Activity: Resume usual activity Patient Instructions: General Allergic Reaction (ED) Coding Level of Care Code ED Trouble Dispatcher for Bryce Bo
--- NOTE | 2024-04-24 18:04 | XRR_ITS ---
PROCEDURE INFORMATION: Exam: XR Chest Exam date and time: 04/24/2024 6:11 PM Age: 33 years old Clinical indication: Shortness of breath; Additional info: SOB TECHNIQUE: Imaging protocol: Radiologic exam of the chest. Views: 1 view. COMPARISON: CR XR chest 1V portable [id number] 09/30/2021 11:45 PM FINDINGS: Lungs: Unremarkable. No consolidation. Pleural spaces: Unremarkable. No pleural effusion. No pneumothorax. Heart/Mediastinum: Unremarkable. No cardiomegaly. Bones/joints: Unremarkable. XR/XR chest 1V portable [id number] IMPRESSION: No acute findings.
[2024-04-24 18:09] VITALS: BP 202/120
[2024-04-24 18:53] VITALS: BP 156/126; PULSE 80; RESP 15; O2SAT 98
[2024-04-24 19:39] VITALS: BP 176/99; PULSE 84; RESP 19; O2SAT 100
[2024-04-24 19:52] VITALS: BP 164/108; PULSE 91; RESP 21; O2SAT 100
== END 2024-04-24 19:54 | disposition home or self-care (01) ==
PROVIDERS: Emergency Provider Emergency Medicine; PCP Physician Assistant
DX: T78.40XA Allergy, unspecified, initial encounter (principal); X58.XXXA Exposure to other specified factors, initial encounter; F17.290 Nicotine dependence, other tobacco product, uncomplicated
CPT/HCPCS: 71045; 99283

== ENCOUNTER → 2024-08-01 16:43 | Outpatient (BNVA) | payer SELFPAY | PROVIDERS: PCP Physician Assistant | DX: N93.9 Abnormal uterine and vaginal bleeding, unspecified (principal); N92.6 Irregular menstruation, unspecified; Z32.02 Encounter for pregnancy test, result negative | CPT/HCPCS: 81025; 84703 ==

== ENCOUNTER → 2024-09-11 13:59 | Outpatient (BNVA) | payer MEDICAID, SELFPAY | PROVIDERS: PCP Physician Assistant; Visit Provider Nurse Practitioner Women's Health | DX: N93.9 Abnormal uterine and vaginal bleeding, unspecified (principal); Z32.01 Encounter for pregnancy test, result positive; E28.2 Polycystic ovarian syndrome | CPT/HCPCS: 80053; 82306; 82670; 83001; 83002; 83036; 83520; 83525; 84146; 84402; 84403; 84443; 84702; 85025 ==

== ENCOUNTER → 2024-10-03 15:24 | Outpatient (BNVA) | payer MEDICAID, SELFPAY | PROVIDERS: PCP Physician Assistant; Visit Provider Nurse Practitioner Women's Health | DX: N92.6 Irregular menstruation, unspecified (principal) | CPT/HCPCS: 76830 ==

== ENCOUNTER 2024-10-26 09:08 | Emergency (ER) | payer MEDICAID, SELFPAY ==
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
[2024-10-26 09:13] VITALS: BP 199/112; PULSE 66; RESP 18; TEMP 36.7; O2SAT 97; BMI 42.8
--- NOTE | 2024-10-26 09:16 | ED_ITS ---
HPI - Female Genitourinary 2 General: Chief complaint: General Medical Stated complaint: abnormally heavy bleeding (menstruation) Time Seen by Provider: 10/26/24 09:11 Source: patient Mode of arrival: ambulatory Limitations: no limitations History of Present Illness: Patient is a 33-year-old female presents to ED today for evaluation of heavy vaginal bleeding. She has been seeing COMBINER OPERATOR due to difficulty conceiving related to her PCOS. She states she has not had a menstrual cycle in over a year related to this thus they placed her on progesterone for 10 days to help induce menstruation. She states she began bleeding on Tuesday and has been very heavy since (2 days). She is reporting pelvic cramping that is making her nauseous. Denies dizziness/lightheadedness, racing heart rate, or passing out episodes. MD elicited complaint: vaginal bleeding Pertinent past history: other (PCOS) Onset (ago): day(s) Severity: moderate Quality of pain: cramping Vaginal discharge: none Vaginal bleeding: heavy Exacerbating factors: none Relieving factors: none Associated symptoms: Reports nausea; Deny abdominal pain, headache(s) or vaginal discharge Treatment prior to arrival: none Sexual activity: Yes Patient : No Related Data Home Medications ?Medication ?Instructions ?Recorded ?Confirmed [id number] 400 mcg-om3 35 mg-dha 25 tab PO 10/11/2409/25 mg-epa 5 mg-fish oil chewable tablet Previous Rx's ?Medication ?Instructions ?Recorded epinephrine 0.3 mg/0.3 mL 0.3 mg (0.3 mL) IM Q15M PRN 04/24/24 injection, auto-injector (EpiPen anaphylaxis #2 ea 2-Nate) cholecalciferol (vitamin D3) 1,250 1,250 mcg PO .once weekly #8 caps 10/11/24 mcg (50,000 unit) capsule medroxyprogesterone 10 mg tablet 10 mg PO DAILY #10 ta bs 10/11/24 (Provera) tramadol 50 mg tablet 50 mg PO Q6H PRN pain #10 ta bs 10/26/24 Allergies Allergy/AdvReac Type Severity Reaction Status Date / Time lamotrigine (From Lamictal) Allergy HIVES Verified 10/26/24 09:19 Review of Systems 2 Const: Denies: fever(s), chills, body aches, fatigue or malaise Card: Denies: chest pain Resp: Denies: dyspnea GI: Reports: nausea and vomiting; Denies: abdominal pain, diarrhea or constipation : Reports: vaginal bleeding, irregular period and pelvic pain; Denies: flank pain, difficulty voiding, dysuria, urinary frequency, urinary urgency, urinary hesitancy, hematuria or vaginal discharge Musc: Denies: back pain Neuro: Denies: headache(s) or dizziness PFSH ED 2 PFSH: Surgical History History of tonsillectomy Family History Grandmother Breast cancer Colon cancer Diabetes Stroke Grandfather Diabetes Mother Diabetes Heart disease Hyperlipidemia Hypertension Stroke Father Heart disease Hyperlipidemia Hypertension Denies family history of Ovarian cancer Uterine cancer Thyroid disease Social History Smoking and tobacco/nicotine status: current every day tobacco/nicotine user Second hand smoke exposure: No Alcohol intake: former Substance/Drug Use: former Physical Exam 2 Const: COMMON NORMALS: no acute distress, patient oriented x3, no limitations, alert and well nourished GENERAL APPEARANCE: cooperative NUTRITIONAL APPEARANCE: obese morbidly obese (BMI 42.8) ORIENTATION/CONSCIOUSNESS: Yes awake, Yes oriented to person, Yes oriented to place and Yes oriented to time Resp: COMMON NORMALS: normal respiratory effort and clear to auscultation bilaterally AUSCULTATION: clear to auscultation bilaterally Cardio: COMMON NORMALS: regular rate and regular rhythm RATE: regular rate RHYTHM: regular rhythm GI: COMMON NORMALS: Normal to inspection, nondistended, normoactive bowel sounds present, Soft to palpation, non-tender, No hepatosplenomegaly present and no masses PALPATION: Yes Soft to palpation and Yes No hepatosplenomegaly present : COMMON NORMALS: Yes no CVA tenderness BLADDER/KIDNEY EXAM: Yes no CVA tenderness Back/Pelvis: COMMON NORMALS: no CVA tenderness Neuro: COMMON NORMALS: patient oriented x3 SENSORIUM/ORIENTATION: Yes alert, Yes oriented to person, Yes oriented to place and Yes oriented to time Course 2 Vital Signs: Vital signs: Vital Signs Temperature 98.0 F 10/26/24 09:13 Pulse Rate 47 L 10/26/24 10:16 Respiratory Rate 18 10/26/24 09:13 Blood Pressure 202/112 10/26/24 10:16 Pulse Oximetry 97 10/26/24 09:13 Oxygen Delivery Me thod Room Air 10/26/24 09:13 MDM - Female Medical Decision Making Patient is a 33-year-old female with a history of anovulation related to PCOS. She has been seeing our women's health clinic and was recently placed on progesterone to help induce menstruation. She states she completed her 10-day course of this and began bleeding on Tuesday and has bled heavily over the last 48 hours. Vital signs upon arrival are stable. She has chronic untreated hypertension. She has systolic readings over 190s dating all the way back to 2021. She does not seem very compliant with blood pressure medications. She is asymptomatic. Recommending she get back with her primary care provider to get started on medications and begin keeping a blood pressure log at home. Related to her vaginal bleeding today, she is hemodynamically stable. Her hemoglobin is 13.7. is negative. Negative orthostatics. Recommend she follow-up with women's health next week for reevaluation. Return to ED precautions discussed. Medical Records I reviewed the patient's medical records. Lab Data I reviewed the patient's lab results. 10/26/24 09:44 Laboratory Results WBC 11.56 10^3/uL (3.29-11.43) H 10/26/24 09:44 RBC 4.63 10^6/uL (3.85-5.65) 10/26/24 09:44 Hgb 13.70 g/dL (11.27-16.99) 10/26/24 09:44 Hct 39.9 % (36-47) 10/26/24 09:44 MCV 86.2 fl (85-98) 10/26/24 09:44 MCH 29.6 pg (27-33) 10/26/24 09:44 MCHC 34.3 g/dL (30-55) 10/26/24 09:44 RDW 13.0 % (12.1-15.1) 10/26/24 09:44 Plt Count 271 10^3/cmm (157-399) 10/26/24 09:44 MPV 10.2 fL (7.4-10.4) 10/26/24 09:44 Neut % (Auto) 85.9 % 10/26/24 09:44 Lymph % (Auto) 9.5 % 10/26/24 09:44 [place] % (Auto) 3.3 % 10/26/24 09:44 Eos % (Auto) 0.5 % 10/26/24 09:44 Baso % (Auto) 0.4 % 10/26/24 09:44 Neut # (Auto) 9.92 10^3/uL (1.8-7.7) H 10/26/24 09:44 Lymph # (Auto) 1.1 10^3/uL (0.8-4.8) 10/26/24 09:44 [place] # (Auto) 0.4 10^3/uL (0.2-0.9) 10/26/24 09:44 Eos # (Auto) 0.1 10^3/uL (0.0-0.8) 10/26/24 09:44 Baso # (Auto) 0.1 10^3/uL (0.0-0.1) 10/26/24 09:44 Nucleated RBC % (auto) 0 % 10/26/24 09:44 Nucleated RBCs # 0.0 /100WBC 10/26/24 09:44 HCG, Qual Negative (Negative) 10/26/24 09:44 No radiology studies performed this visit Discharge Plan Discharge Patient Disposition: Home Clinical Impression: Abnormal uterine bleeding (AUB), PCOS (polycystic ovarian syndrome) Condition: Stable Prescriptions: New tramadol 50 mg tablet 50 mg PO Q6H PRN (Reason: pain) Qty: 10 0RF No Action [id number]-[id number] oil 400 mcg-35 mg -25 mg-5 mg tablet,chewable PO cholecalciferol (vitamin D3) 1,250 mcg (50,000 unit) capsule 1,250 mcg PO .once weekly Qty: 8 0RF Rx Instructions: take once weekly for 8 weeks medroxyprogesterone [Provera] 10 mg tablet 10 mg PO DAILY Qty: 10 0RF Rx Instructions: take 1 tab daily for 10 days epinephrine [EpiPen 2-Nate] 0.3 mg/0.3 mL auto-injector 0.3 mg IM Q15M PRN (Reason: anaphylaxis) Qty: 2 0RF Rx Instructions: for 3 doses Discharge Orders: Discharge ED (Routine); Ordered 10/26/24 Ordered By: Christy Hawkins Referrals: Breann Koehler PA-C [Primary Care Provider, Unknown] Patient Instructions: Abnormal (Dysfunctional) Uterine Bleeding (ED), Patient Portal & Marcos Instructions Activity Restrictions/Additional Instructions: As we discussed, I would like you to follow-up with women's health next week for reevaluation. You may return to the emergency department at anytime for worsening pain, sustained heavy vaginal bleeding, lightheadedness/dizziness/passing out episodes, or any other concerns you may have. You need to make an appointment with your primary care provider to get back on medications to treat your chronic high blood pressure. Print Language: Argentine Coding Level of Care Code ED Director Of Cloud Services for Bryce Bo
[2024-10-26 09:50] LABS: Hematocrit 39.9 % (36-47); Hemoglobin 13.70 g/dL (11.27-16.99); Mean Corpuscular HGB Conc 34.3 g/dL (30-55); Mean Corpuscular Hemoglobin 29.6 pg (27-33); Mean Corpuscular Volume 86.2 fl (85-98); Nucleated Red Blood Cells % 0 %; Platelet Count 271 10^3/cmm (157-399); Red Blood Count 4.63 10^6/uL (3.85-5.65); White Blood Count 11.56 10^3/uL (3.29-11.43)
[2024-10-26 10:09] LABS: HCG, Serum Qual Negative (Negative)
[2024-10-26 10:16] VITALS: BP 199/113; BP 202/112; BP 204/112; PULSE 47; PULSE 64; PULSE 67
[2024-10-26 10:47] VITALS: BP 202/112; PULSE 72; O2SAT 96
--- NOTE | 2024-10-26 12:35 | PC.NURSE ---
Women's health referral sent.
== END 2024-10-26 10:48 | disposition home or self-care (01) ==
PROVIDERS: Emergency Provider Physician Assistant; PCP Physician Assistant
DX: N93.9 Abnormal uterine and vaginal bleeding, unspecified (principal); E28.2 Polycystic ovarian syndrome; Z72.0 Tobacco use
CPT/HCPCS: 36415; 84703; 85025; 99283; J9999

== ENCOUNTER → 2024-10-30 13:55 | Outpatient (BNVA) | payer MEDICAID, SELFPAY | PROVIDERS: PCP Physician Assistant; Visit Provider Obstetrics & Gynecology | DX: Z34.90 Encounter for supervision of normal pregnancy, unspecified, unspecified trimester (principal) | CPT/HCPCS: 86592; 86803; 87340; 87491; 87591; 87661; 87806 ==

== ENCOUNTER → 2024-10-31 00:04 | Outpatient (BNVA) | payer MEDICAID, SELFPAY | PROVIDERS: PCP Physician Assistant; Visit Provider Obstetrics & Gynecology | DX: Z34.90 Encounter for supervision of normal pregnancy, unspecified, unspecified trimester (principal) | CPT/HCPCS: 87522 ==

== ENCOUNTER → 2024-11-13 10:58 | Outpatient (BNVA) | payer MEDICAID, SELFPAY | PROVIDERS: PCP Physician Assistant; Visit Provider Nurse Practitioner Women's Health | DX: E28.2 Polycystic ovarian syndrome (principal) | CPT/HCPCS: 84144 ==

== ENCOUNTER 2025-01-09 11:53 | Emergency (ER) | payer MEDICAID, SELFPAY ==
[2025-01-09 12:01] VITALS: PULSE 83; RESP 16; TEMP 36.7; O2SAT 100; BMI 40.6
[2025-01-09 12:09] VITALS: O2SAT 99
[2025-01-09 13:00] LABS: HCG, Serum Qual Negative (Negative)
--- NOTE | 2025-01-09 16:29 | W.ED.GENADLT ---
HPI - General Adult General: Chief complaint: General Medical Stated complaint: had 4 + preg tests, wants to confirm with labs Time Seen by Provider: 01/09/25 12:00 History of Present Illness: 34-year-old female presents emergency room she had 4 positive home test and went to one of the local clinics was told it was negative so she came to the emergency room for another test. She did not had any dysuria urgency or frequency no vaginal bleeding no pelvic cramping. Related Data Home Medications ?Medication ?Instructions ?Recorded ?Confirmed inositol 500 mg capsule 500 mg PO DAILY 01/09/25 01/09/25 vit no.95-ferrous 1 tab PO DAILY 01/09/25 01/09/25 fumarate 28 mg-folic acid 800 mcg tablet () Previous Rx's ?Medication ?Instructions ?Recorded epinephrine 0.3 mg/0.3 mL 0.3 mg (0.3 mL) IM Q15M PRN 04/24/24 injection, auto-injector (EpiPen anaphylaxis #2 ea 2-Nate) Allergies Allergy/AdvReac Type Severity Reaction Status Date / Time lamotrigine (From Lamictal) Allergy HIVES Verified 10/30/24 14:10 [facility] ED PFSH: Surgical History History of tonsillectomy Family History Grandmother Breast cancer Colon cancer Diabetes Stroke Grandfather Diabetes Mother Diabetes Heart disease Hyperlipidemia Hypertension Stroke Father Heart disease Hyperlipidemia Hypertension Denies family history of Ovarian cancer Uterine cancer Thyroid disease Social History Smoking and tobacco/nicotine status: current every day tobacco/nicotine user Second hand smoke exposure: No Alcohol intake: former Substance/Drug Use: former Physical Exam Const: COMMON NORMALS: no acute distress GENERAL APPEARANCE: cooperative and comfortable ORIENTATION/CONSCIOUSNESS: Yes awake, Yes oriented to person, Yes oriented to place and Yes oriented to time HENMT: COMMON NORMALS: normocephalic, atraumatic and hearing grossly normal bilaterally HEAD & SCALP: normocephalic and atraumatic Resp: COMMON NORMALS: normal respiratory effort, No retractions, No use of accessory muscles and clear to auscultation bilaterally AUSCULTATION: clear to auscultation bilaterally Cardio: COMMON NORMALS: regular rate, regular rhythm and No murmurs present (Cardio) RATE: regular rate RHYTHM: regular rhythm Extremity: COMMON NORMALS: normal to inspection, capillary refill normal, no clubbing, cyanosis or edema, no calf tenderness and no pedal edema Neuro: SENSORIUM/ORIENTATION: Yes oriented to person, Yes oriented to place and Yes oriented to time Skin: COMMON NORMALS: no rashes or lesions noted GENERAL SKIN EXAM: no rashes or lesions noted Course Vital Signs: Vital signs: Vital Signs Temperature 98.1 F 01/09/25 12:01 Pulse Rate 83 01/09/25 12:01 Respiratory Rate 16 01/09/25 12:01 Pulse Oximetry 99 01/09/25 12:09 Oxygen Delivery Me thod Room Air 01/09/25 12:09 MDM - General Adult Medical Decision Making Serum qualitative beta-hCG is negative. Reviewed findings with the patient discharge home and have her follow-up with her primary care doctor. Medical Records I reviewed the patient's medical records. Lab Data I reviewed the patient's lab results. Laboratory Results HCG, Qual Negative (Negative) 01/09/25 11:25 No radiology studies performed this visit Discharge Plan Discharge Patient Disposition: Home Clinical Impression: Not currently Condition: Stable Prescriptions: No Action epinephrine [EpiPen 2-Nate] 0.3 mg/0.3 mL auto-injector 0.3 mg IM Q15M PRN (Reason: anaphylaxis) Qty: 2 0RF Rx Instructions: for 3 doses PNV no.95-ferrous fumarate-FA [] 28 mg iron- 800 mcg Tablet 1 tab PO DAILY inositol 500 mg Capsule 500 mg PO DAILY Discharge Orders: Discharge ED (Routine); Ordered 01/09/25 Ordered By: Arun Gentile Referrals: Breann Koehler PA-C [Primary Care Provider, Unknown] Discharge Diet: Usual diet Discharge Activity: Resume usual activity Patient Instructions: Opioid Safety, Pain Management, Patient Portal & Marcos Instructions Activity Restrictions/Additional Instructions: [facility] you [facility] needs today. It is very important that you follow up as instructed or that you return to the Emergency Department should you have concerns or if your condition changes or worsens in any way. Emergency department visits are focused on emergent conditions, in some cases you may require further evaluation on an outpatient basis. You were seen in the emergency room concerning possibility of being a serum beta-hCG was negative. The blood test is more sensitive. Home urine test will all turn positive eventually they can only be read and the timeframe specified by the instructions. If you read after that they will frequently turn positive. This may be the reason the home test appear to positive. Recommend you follow-up with your primary care doctor. (Please note that included in your discharge packet is information concerning opioid safety and pain management. This information is given to all patients were discharged from the ER regardless of their discharge diagnosis or the medicines they usually take or are prescribed.) Print Language: Georgian Coding Level of Care Code ED Director Of Strategy & Mobile for Bryce Bo
== END 2025-01-09 13:15 | disposition home or self-care (01) ==
PROVIDERS: Emergency Provider Family Medicine; PCP Physician Assistant
DX: Z32.02 Encounter for pregnancy test, result negative (principal); Z72.0 Tobacco use
CPT/HCPCS: 36415; 84703; 99283

== ENCOUNTER → 2025-01-22 09:34 | Outpatient (BNVA) | payer MEDICAID, SELFPAY | PROVIDERS: PCP Physician Assistant; Visit Provider Nurse Practitioner Women's Health | DX: E28.2 Polycystic ovarian syndrome (principal) | CPT/HCPCS: 80053; 82306; 82465; 83036; 83520; 83525; 83718; 83721; 84402; 84403; 84443; 85025 ==